=== PATIENT | male | born 1940 | race Caucasian/White ===

== ENCOUNTER → 2020-07-09 | Outpatient (CLI) | payer MEDICARE, OTHER ==
[~2020-07-09] MED LIST: ACET65TA OR; ASPIRIN PO; BYSTOLIC PO; COUM1TAB18 OR; FISHCAP PO; FURO20TA PO; PERC5TAB8 OR; PRADAXA; SIMVASTIN PO; SPIROLACTONE PO; VITAMIN B 12 PO; [UNRECOGNIZED DRUG - OTHER] PO
--- NOTE | 2020-07-10 01:18 | REPPI ---
INDICATION: R06.0 DYSPNEA ON EXERTION COMPARISON: 07/23/2010 TECHNIQUE: PA and lateral. FINDINGS: The mediastinum and cardiac silhouette are relatively stable. Cardiomegaly with pacemaker again noted. The lung jones demonstrate chronic appearing interstitial changes although superimposed acute process including atelectasis and or chronic pulmonary vascular congestion cannot be excluded. The skeletal structures are intact and normal. IMPRESSION: Cannot exclude subtle acute on chronic process including atelectasis or mild pulmonary vascular congestion.. <Electronically signed by Cameron Her > 07/10/20 0114
== END ==
LOC: M PLAIMG 13:17
PROVIDERS: ATTEND Nurse Practitioner Family
DX: R06.00 Dyspnea, unspecified (principal)

== ENCOUNTER → 2020-07-09 | Outpatient (REF) | payer MEDICARE, OTHER ==
[2020-07-09 15:34] LABS: HEMATOCRIT 48.6 % (42.0-52.0); HEMOGLOBIN 15.4 g/dl (13.5-17.5); MEAN CORPUSCULAR HEMOGLOBIN 30.4 pg (27.0-33.0); MEAN CORPUSCULAR HGB CONC 31.7 g/dl (32.0-36.5); MEAN CORPUSCULAR VOLUME 95.9 fl (80.0-96.0); PLATELET COUNT, AUTOMATED 221 10^3/uL (150-450); RED BLOOD COUNT 5.07 10^6/uL (4.30-6.10); WHITE BLOOD COUNT 9.8 10^3/uL (4.0-10.0)
[2020-07-09 15:54] LABS: ALBUMIN 4.1 GM/DL (3.2-5.2); ALT/SGPT 26 U/L (12-78); BILIRUBIN,TOTAL 1.3 MG/DL (0.2-1.0); BLOOD UREA NITROGEN 25 MG/DL (7-18); CALCIUM LEVEL 9.1 MG/DL (8.8-10.2); CARBON DIOXIDE LEVEL 28 MEQ/L (21-32); CHLORIDE LEVEL 104 MEQ/L (98-107); CREATININE FOR GFR 0.86 MG/DL (0.70-1.30); GLOMERULAR FILTRATION RATE > 60.0 (>42); GLUCOSE, FASTING 109 MG/DL (70-100); NT-PRO BNP 1605 PG/ML (<450); POTASSIUM SERUM 4.6 MEQ/L (3.5-5.1); SODIUM LEVEL 138 MEQ/L (136-145); TOTAL PROTEIN 7.5 GM/DL (6.4-8.2)
== END ==
LOC: M PLALAB 14:50
PROVIDERS: ATTEND Nurse Practitioner Family
DX: R06.00 Dyspnea, unspecified (principal)